=== PATIENT | female | born 1950 | race Caucasian/White ===

== ENCOUNTER → 2021-12-19 | Outpatient (CLI) | payer MEDICARE ==
[2021-12-19 10:16] VITALS: BP 152/81
--- NOTE | 2021-12-19 10:44 | Cardiology Stress Test Report ---
Stress Test Report Date of Procedure/Referring: Date of Procedure: Dec 19, 2021 PCP Unknown to me Admitting Physician Admitting Physician: Attending Physician: Henrry Rivera Jr, MD Indications: Abnormal electrocardiogram Baseline Heart Rate: 82 Baseline Blood Pressure: Blood Pressure Systolic: 152 Blood Pressure Diastolic: 81 Baseline EKG: Baseline EKG: Sinus rhythm with 1 premature ventricular complex. Summary/Conclusion: PROCEDURE: The patient was exercised for total of 2 minutes and 30 seconds of the standard Eduardo protocol achieving a maximum MET level of 4. The resting heart rate was 82 bpm and the peak heart rate was 147 bpm, which represents 99% of the maximum predicted heart rate. The resting blood pressure was 152/81 mmHg and the peak blood pressure was 186/80 mmHg. This represents a normal heart rate and blood pressure response to exercise with resting hypertension. The te st was stopped due to the patient attaining the target heart rate. There was no exercise-induced chest discomfort. There were frequent, isolated premature ventricular complexes during the test. There were no electrocardiogram changes during the test. The patient exhibited good exercise capacity for age. IMPRESSION: 1. Normal heart rate and blood pressure response to exercise with resting hypertension. 2. There was no chest discomfort during the test. 3. There were frequent, isolated premature ventricular complexes at rest and during exercise. 4. There were no stress-induced electrocardiogram changes. 5. The patient exhibited good exercise capacity for age at 2 minutes and 30 seconds of the Eduardo protocol. Certain portions of this document may have been dictated utilizing voice recognition technology. Inherent to this technology, typographical and grammatical errors may exist. As much as I am diligent to identify and correct these mistakes, some errors may remain in the document. HENRRY RIVERA JR, MD Dec 19, 2021 10:44
== END ==
LOC: CARD 10:00
PROVIDERS: ATTEND Internal Medicine Cardiovascular Disease
DX: R94.31 Abnormal electrocardiogram [ECG] [EKG] (principal)
CPT/HCPCS: 93017